=== PATIENT | female | born 1975 | race Caucasian/White ===

== ENCOUNTER 2016-11-07 16:33 | Emergency (ER) | payer OTHER ==
[2016-11-07 17:07] VITALS: BP 116/72
[2016-11-07] MEDS ORDERED: Albuterol 2.5 MG/3 ML NEB.SOL* (0.083%) INH ONE (17:40)
[2016-11-07] MEDS ORDERED: Ipratropium 0.5MG/2.5ML NEB* 0.5 MG/2.5 ML NEB.SOLN INH ONE (17:40)
--- NOTE | 2016-11-07 17:53 | RAD ---
Indication: Ten-day cough. 2 views of the chest including dual energy PA views demonstrate no mediastinal shift. Heart is of normal size and configuration. Lung cohn demonstrate no pleural fluid, pneumonia or pneumothorax. IMPRESSION: No active cardiopulmonary disease is noted.
--- NOTE | 2016-11-07 18:18 | UC ---
Respiratory Complaint HPI - HPI Summary HPI Summary: 41 yo female with cough x 10 days wheezing no f/c no rdz or myalgia no n/v/d - History of Current Complaint Chief Complaint: UCRespiratory Stated Complaint: COUGH Time Seen by Provider: 11/07/16 16:55 Hx Obtained From: Patient Hx Last Menstrual Period: 11/03/16 Onset/Duration: Gradual Onset, Lasting Days Timing: Constant Severity Initially: Mild Severity Currently: Moderate Pain Intensity: 0 Pain Scale Used: 0-10 Numeric Character: Cough: Productive Aggravating Factors: Deep Breaths Associated Signs And Symptoms: Positive: Wheezing - Allergies/Home Medications Allergies/Adverse Reactions: Allergies Allergy/AdvReac Type Severity Reaction Status Date / Time No Known Allergies Allergy Verified 11/07/16 16:57 Home Medications: Home Medications [id number] [Night Time Multi-Symptom] 1 cap PO BEDTIME PRN 11/07/16 [History Confirmed 11/07/16] [email or web address] ER TAB [Mucinex*] 600 mg PO BID PRN 11/07/16 [History Confirmed 07/22] PMH/Surg Hx/FS Hx/Imm Hx Previously Healthy: Yes - Surgical History Surgical History: None - Family History Known Family History: Positive: Hypertension - Social History Alcohol Use: Occasionally Substance Use Type: None Smoking Status (MU): Never Smoked Tobacco Review of Systems Constitutional: Negative Skin: Negative Eyes: Negative ENT: Negative Respiratory: Cough Cardiovascular: Negative Gastrointestinal: Negative Genitourinary: Negative Motor: Negative Neurovascular: Negative Musculoskeletal: Negative Neurological: Negative Psychological: Negative All Other Systems Reviewed And Are Negative: Yes Physical Exam Triage Information Reviewed: Yes Appearance: Well-Appearing, No Pain Distress, Well-Nourished Vital Signs: Initial Vital Signs Temp 98.5 F 11/07/16 16:59 Pulse 72 11/07/16 16:59 Resp 24 11/07/16 16:59 BP 116/72 11/07/16 16:59 Pulse Ox 97 11/07/16 16:59 Vital Signs Reviewed: Yes Eyes: Positive: Conjunctiva Clear ENT: Positive: Hearing grossly normal. Negative: Nasal congestion, Nasal drainage, Trismus, Muffled/hoarse voice Neck: Positive: Supple, Nontender Respiratory: Positive: Lungs clear, Normal breath sounds, Wheezing Cardiovascular: Positive: RRR, No Murmur Musculoskeletal: Positive: ROM Intact, No Edema Neurological: Positive: Alert Psychological Exam: Normal Skin Exam: Normal UC Diagnostic Evaluation - Laboratory O2 Sat by Pulse Oximetry: 97 - normal/not hypoxic - Radiology Xray Interpretation: No Acute Changes Radiology Interpretation Completed By: Radiologist Re-Evaluation - Re-Evaluation First Eval Re-Evaluation Time: 18:27 Change: Improved Comment: feels better after neb. more air movement Respiratory Course/Dx - Differential Dx/Diagnosis Provider Diagnoses: acute bronchitis Discharge - Discharge Plan Condition: Stable Disposition: HOME Prescriptions: Albuterol HFA INHALER* [Ventolin HFA Inhaler*] 2 puff INH QID #1 mdi Azithromycin TAB* [Zithromax TAB*] 250 mg PO DAILY #6 tab Prednisone [Deltasone] 40 mg PO DAILY #10 tab Patient Education Materials: Acute Bronchitis (ED) Referrals: Nathalie ENGLISH,Mimi Hernandez [Primary Care Provider] - 4 Days (recheck in 4-7 days if not better)
[2016-11-07] MEDS ORDERED: Albuterol HFA INHALER* 8 gm MDI INH ONE (18:20)
== END 2016-11-07 18:41 | disposition home or self-care (01) ==
LOC: UCCORT 16:33
DX: J20.9 Acute bronchitis, unspecified (principal)
CPT/HCPCS: 71020; A9270-GY; J7644